=== PATIENT | male | born 1955 | race Caucasian/White ===

== ENCOUNTER 2017-05-06 15:49 | Emergency (ER) | payer OTHER ==
[~2017-05-06] VITALS: Ht 177.8 cm; Wt 87.2 kg
[2017-05-06 15:51] VITALS: BP 142/86
[2017-05-06] MEDS ORDERED: SIMV20TA3 PO (16:56)
[2017-05-06] MEDS ORDERED: TAMS-11 PO (16:56)
[2017-05-06] MEDS ORDERED: DUTA0.5C PO (16:56)
[2017-05-06] MEDS ORDERED: FLUORESCEIN OPHTHALMIC 1 MG STRIP ONE (17:04)
[2017-05-06] MEDS ORDERED: CIPROFLOXACIN OPHTH SOLN 0.3%, 5ML LEFTEYE SCH (17:30)
[2017-05-06] MEDS ORDERED: DIPH,PERTUSS(ACELL),TET VAC/PF 0.5 ML IM-VACC ONE ×2 (17:30→17:35)
[2017-05-06] MEDS ORDERED: OFLOXACIN OPHTH 0.3%, 5ML OP SCH (18:00)
== END 2017-05-06 17:49 | disposition home or self-care (01) ==
LOC: ED 17:43
DX: T15.02XA Foreign body in cornea, left eye, initial encounter (principal)
CPT/HCPCS: 90471; 90715